=== PATIENT | female | born 1975 | race Caucasian/White ===

== ENCOUNTER → 2017-03-05 | Outpatient (CLI) | payer OTHER ==
--- NOTE | 2017-03-06 16:24 | PULMONARY FUNCTION TEST ---
CLINICAL DATA: A 41-year-old female with a height of 68 inches and a weight of 290 pounds referred by Etta Mills PA-C for pulmonary function testing. Spirometry pre- and post-bronchodilator, lung volumes, and DLCO were ordered and performed. FINDINGS: Pre-bronchodilator spirometry is within normal limits. FVC was 101% of predicted. FEV1 was 98% of predicted. [id number] was 90% of predicted. There was minimal change after inhaled bronchodilator. FEV1 improved 4% to 102% of predicted. [id number] improved 12% to 101% of predicted. Lung volumes show evidence of reduction in expiratory reserve volume and residual volume secondary to obesity. DLCO is minimally reduced at 71% of predicted. IMPRESSIONS: 1. Normal baseline spirometry with minimal improvement after inhaled bronchodilator primarily in [id number]. 2. Reduction in lung volumes secondary to obesity. 3. Very slight reduction in DLCO with normal DLCO/VA. MTDD
== END | disposition home or self-care (01) ==
LOC: C.RC 13:20
PROVIDERS: ATTEND Physician Assistant
DX: G47.30 Sleep apnea, unspecified (principal)

== ENCOUNTER → 2017-03-20 | Outpatient (CLI) | payer OTHER ==
--- NOTE | 2017-03-21 04:58 | PAP/PSG TECHNICIAN REPORT ---
[facility] Dry Cell Assembly Machine Tender Polysomnogram Report Study name: None Report date: 03/21/2017 Study date: 03/20/2017 Referring Physician: ROSA MARIA SLOAN PA-C Name: PAOLA CATES I Interpreting Physician: Hal Baez D.O. Date of : 1975 Dry Cell Assembly Machine Tender: Bree Meier RPSCARLOS. Sex: Female Age: 41 Study Type: PSG Weight: 299 lbs Height: 41 years, Height 5' 9" BMI: 44.15 Medications: PRILOSEC 20 MG, ZANTAC 300 MG, ATENOLOL 25 MG, XANAX 0.5 MG Patient History 41 yr-old female here for a baseline study. She has a history of witnessed apneas, snoring, and daytime sleepiness. Her Lynd scale is 14. The test was started on room air. ETCO2 testing was not utilized during this study. Room 1 Parameters Monitored NPSG: E1-M2, E2-M1, Fp1-M2, Fp2-M1, F3-M2, F4-M2, F4-M1, C3-M2, C4-M2, C4-M1, O1-M2, O2-M2, O2-M1, T3-M2, T4-M1, P3-M2, P4-M1, CHIN1, CHIN2, HR, EKG, Legs, PFLOW, SNOR, FLOW, CFLOW, Tidal Volume, THOR, ABDO, SpO2, PLTH, CPRESS, ETCO2 Wave, ETCO2, pH Sleep Architecture Sleep Stages Time at Lights Off 10:22:08 PM STAGES Time (min.) TST (%) Time at Lights On 4:28:08 AM Wake 159.0 -- Total Recording Time (TRT) 366.00 min. N1 50.5 24 Total Sleep Period (TSP) 313.5 min. N2 128.5 62 Total Sleep Time (TST) 207.0min. N3 22.5 11 Awake Time 159.0 min. REM 5.5 3 Wake after Sleep Onset 143.5 min. Sleep Efficiency (SE) 57 % Sleep Onset Latency (MATEO) 15.5 min. Number of Stage 1 Shifts None Awakenings 14 Stage Changes 52 Number of REM periods 2 REM 5.5 3 REM Latency 160.5 min. NREM 201.5 97 Body Position Analysis Supine Right Left Side Prone Vertical Total Sleep Time (min.) 30.6 0.0 152.7 152.74 53.8 0.0 Total Sleep Time (%) 1% 0% 74% 74 25% N/A% Total Sleep Time REM (min.) 0.0 0.0 3.5 None 2.0 0.0 Total Sleep Time NREM (min.) 1.5 0.0 149.2 None 50.8 0.0 Intermittent Wake (min.) 29.1 0.0 128.9 None 1.0 0.0 Total Sleep Period (%) 9% None None None None None Arousals Myoclonus (PLM) * Events Count Index Events Count Index Spontaneous 12 3 Events Awake (PLMW) 81 30.6 Respiratory 2 0.6 Events Asleep w/ Arousal (PLMA) 8 2.3 PLM 8 2 Events Asleep w/o Arousal (PLMS) 51 14.8 Snoring 1 0 Total Asleep 59 17.1 Total 23 7 Total 140 23 Respiratory Analysis * CA OA MA CH H RERA Total Count 0 0 0 0 1 2 1 Index 0.0 0.0 0.0 0 0.3 1 0.9 Mean Duration 0.0 0.0 0.0 0.00 15.9 17.2 16.8 Longest Duration 0.0 0.0 0.0 0.00 0.0 19.9 19.9 Respiratory Event Summary Total Supine ~Supine Right Left Prone REM NREM Apneas Count 0 0 0 N/A 0 0 0 0 Index 0.0 0 0 N/A 0.0 0 0 0 Hypopneas (4% Desat) Count 1 0 1 N/A 1 0 1 0 Index 0.3 0.0 0 N/A 0.4 0.0 10.9 0.0 Apneas & All Hypopneas Count 1 0 1 N/A 1 0 1 0 Index 0.3 0 0 N/A 0 0 10.9 0.0 Respiratory Events (Insurance Agency Owner+All Hyp+RERA) Count 1 0 3 N/A 2 1 1 0 Index 0.9 0 1 N/A 0.8 1.1 21.8 0.3 Respiratory Related Arousal Count 2 0 2 N/A 1 1 1 1 Index 0.6 0 1 N/A 0 1 11 0 Snoring Analysis Supine Right Left Prone REM NREM Total Snore duration 6.2 min Snores count 0 N/A 431 4 18 417 435 Snore mean duration 0.8 Sec Snores index 0 N/A 169 5 196.4 124.2 126.1 TST with snoring (%) 3.0% Desaturation Event Summary: Minimum %SpO2 Event Count Mean/Min/Max Duration(sec.) Desaturation Index % Time In Bed > 90 8 32.7 / 7.3 / 48.3 1.3 99.6 86 - 90 0 N/A 0.0 0.4 81 - 85 0 N/A 0.0 0.0 76 - 80 0 N/A 0.0 0.0 71 - 75 0 N/A 0.0 0.0 66 - 70 0 N/A 0.0 0.0 61 - 65 0 N/A 0.0 0.0 56 - 60 0 N/A 0.0 0.0 51 - 55 0 N/A 0.0 0.0 < 50 0 N/A 0.0 0.0 Total REM NREM Awake <50% 0.0 min. 0.0 min. 0.0 min. 0.0 min. 51 - 60% 0.0 min. 0.0 min. 0.0 min. 0.0 min. 61 - 70% 0.0 min. 0.0 min. 0.0 min. 0.0 min. 71 - 80% 0.0 min. 0.0 min. 0.0 min. 0.0 min. 81 - 90% 1.3 min. 0.0 min. 1.2 min. 0.1 min. 91 - 100% 358.8 min. 5.5 min. 200.2 min. 153.1 min. Average 94 93 93 94 Minimum SpO2 88 91 90 88 Desaturation Event Index 1.3 10.9 1.2 1.1 # Desat. Events below 89% 1 N/A 1 0 Time(%) with Saturation below 89% 0.0 0.0 0.0 0.0 Time(min.) with Saturation below 89% 0.1 0.0 0.0 0.1 Time (mins) REM (mins) NREM (mins) % of TST SpO2 Below 90% 1 N/A N1 0.0 SpO2 Below 88% 0 0 0 0 Heart Rate Analysis Min (bpm) Max (bpm) Average (bpm) Awake 51 127 66 NREM 51 101 64 REM 58 89 66 Overall 51 101 64 Supplemental O2 Values Minimum O2 level: None Value Start Time End Time Dry Cell Assembly Machine Tender Comments Ms. Cates slept in the left, supine and prone positions. No cardiac arrhythmias were noted. PLMs were noted. No bruxism noted. Snoring was noted and scored as a 2 on a scale of 1 through 5. (0=no snoring, 5=snoring loud enough to be heard through a closed door or down the [address] way) She awoke to use the restroom one time during the night. She called me in the room around 4:30 and stated that she could not sleep any longer and requested to end the study. Ms. Cates stated that she slept poorly. The final report will be interpreted and signed by a sleep physician. The completed physician report will then be placed in the patient medical record. Therapy (cm H2O) 0 TIB (min.) 366.0 TST (min.) 207.0 Sleep Onset (min.) 15.5 REM Onset From Sleep (min.) 160.5 Sleep Efficiency % 57 Wakefulness (%) 43 Wakefulness (min.) 159.0 NREM 1 (%) 24 NREM 1 (min.) 50.5 NREM 2 (%) 62 NREM 2 (min.) 128.5 NREM 3 (%) 11 NREM 3 (min.) 22.5 REM (%) 3 REM (min.) 5.5 # Arousals 23 Arousal Index 7 # Snore 435 Snore Index 126.1 AHI 0.3 AHI Supine 0 AHI Non-Supine 0 NREM AHI 0.0 REM AHI 10.9 RDI 0.9 # Obstructive Apnea 0 # Central Apnea 0 # Mixed Apnea 0 # Hypopneas 1 RERAs 2 Total Respiratory Events 4 Time Below SpO2 89% (min.) 0.0 Mean NREM SpO2 (%) 93 Mean REM SpO2 (%) 93 Mean Sleep SpO2 (%) 93 Min NREM SpO2 (%) 90 Min REM SpO2 (%) 91 Position Supine (min.) 30.6 Position Non-supine (min.) 205.5 LM Index Sleep 17.1 LM Index NREM 17.0 LM Index REM 21.8 Mean Heart Rate (bpm) 64 Min Heart Rate (bpm) 51
--- NOTE | 2017-03-26 09:10 | POLYSOMNOGRAPH REPORT ---
PRIMARY CARE PROVIDER: Dr. Vincenzo Lopez. REFERRING PHYSICIAN: Etta Mills PA-C. CLINICAL DATA: The patient is a 41-year-old female with a BMI of 44.15. She is referred by Etta Mills PA-C. The patient has a history of snoring, observed apneas, morning headaches, and excessive daytime somnolence. Her [place] Sleepiness Score was 14 out of a possible 24. This was a diagnostic in-lab sleep study. SLEEP ARCHITECTURE: The total sleep period was 313.5 minutes. The total sleep time was 207 minutes. The sleep efficiency was moderately decreased to 57%. The sleep onset latency was normal at 15.5 minutes. The wake after sleep onset was elevated at 143.5 minutes. The REM latency was prolonged to 160.5 minutes. Sleep consisted of stage N1 24%, stage N2 62%, stage N3 11%, and stage REM 3%. AROUSAL DATA: The patient had a total of 23 arousals including 12 spontaneous arousals, 2 respiratory arousals, 8 PLM arousals, and 1 snoring arousal. PLM DATA: The patient had a total of 59 periodic limb movements of sleep for an index of 17.1. There were 8 arousals associated with the limb movements for a PLM arousal index of only 2.3. EKG: The cardiac rhythm was normal sinus. The cardiac rates ranged from 51 to 101 beats per minute. RESPIRATORY DATA: The patient had a total of only 1 respiratory event, a hypopnea. Hypopneas were scored by the 4% rule. The apnea hypopnea index was only 0.3 which would be normal. This would suggest no significant sleep apnea. OXIMETRY DATA: The average saturation for the night was 94%. The minimum saturation was 88%. She had 0 time with saturations less than 88%. 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 No cardiac arrhythmias were noted. PLMs were noted. No bruxism noted. Snoring was noted and scored as a 2 on a scale of 1 through 5. The patient requested to terminate the study at 4:30 a.m. because she could not sleep any longer. IMPRESSIONS: 1. Primary snoring. 2. Periodic limb movement disorder. 3. No significant sleep apnea. COMMENTS: The patient had a decreased sleep efficiency. She fell asleep fairly readily, but had an increase in wake time during the night. She had very little sleep after 3:00 a.m. She did have a mild to moderate degree of periodic limb movements as noted. There were few arousals associated with these however, and thus it seems unlikely this issue is causing insomnia. She had no significant sleep apnea. RECOMMENDATIONS: 1. The patient does have an elevation of body mass index at 44.15. A weight reduction program is advised. 2. The patient should be advised of the appropriate principles of sleep hygiene including having a fairly regular sleep-wake schedule and allowing sufficient time for sleep such as approximately 8 hours nightly. 3. Other medical causes for excessive daytime somnolence may need to be excluded. This is deferred to her referring physician.
== END | disposition home or self-care (01) ==
LOC: C.NEUR 20:00
PROVIDERS: ATTEND Physician Assistant
DX: G47.30 Sleep apnea, unspecified (principal); G47.61 Periodic limb movement disorder

== ENCOUNTER → 2017-03-25 | Outpatient (CLI) | payer OTHER ==
[2017-03-25 17:52] LABS: HEMATOCRIT 39.9 % (37-47); MEAN CELL VOLUME 91.9 fL (80-100); MEAN CORPUSCULAR HGB CONC 31.6 g/dl (32-36); MEAN PLATELET VOLUME 10.9 fL (7.4-10.4); PLATELET COUNT 273 K/uL (130-400); RED BLOOD COUNT 4.34 M/uL (4.2-5.4); WHITE BLOOD COUNT 10.97 K/uL (4.8-10.8)
[2017-03-25 18:27] LABS: ALB/GLOB RATIO 0.8 (0.9-2); ALKALINE PHOSPHATASE 90 U/L (45-117); AST/SGOT 18 U/L (15-37); BLOOD UREA NITROGEN 12 mg/dl (7-18); CALCIUM 8.5 mg/dl (8.5-10.1); CARBON DIOXIDE 28 mmol/L (21-32); CHLORIDE 105 mmol/L (98-107); CREATININE 0.87 mg/dl (0.60-1.20); GLUCOSE 90 mg/dl (70-99); HDL CHOLESTEROL 56 mg/dl; POTASSIUM 3.5 mmol/L (3.5-5.1); SODIUM 141 mmol/L (136-145)
[2017-03-25 18:38] LABS: ALT/SGPT 28 U/L (12-78); CHOLESTEROL 137 mg/dl (0-200); CHOLESTEROL/HDL RATIO 2.4; LDL CHOLESTEROL CALCULATED 58 mg/dl; TRIGLYCERIDES 117 mg/dl (0-150); VERY LOW DENSITY LIPOPROT CALC 23 mg/dl
[2017-03-26 06:39] LABS: ESTIMATED AVERAGE GLUCOSE 108 mg/dl; HA1C FLAG Normal (Normal)
[2017-03-29 16:39] LABS: MICROSOMAL AB <1 IU/ML (<9); TSI <89 % baseline (<140)
--- NOTE | 2017-04-05 06:26 | CODING QUERY MEDICAL NECESSITY ---
SUPPORTING DIAGNOSIS NEEDED Gene MARIN, A supporting diagnosis is required for the test/procedure performed on this patient in order for us to be reimbursed by the patient's insurance. Please provide a supporting diagnosis for the following test/procedure listed below next to the test name along with your signature. *If there is no additional diagnosis for this patient that would support the following test/procedure please document that below next to the test/procedure. Test(s)/Procedure(s) that require a supporting diagnosis: * [id number] GLYCATED HEMOGLOBIN DIAGNOSIS: * [id number] VITAMIN D ASSAY DIAGNOSIS: DATE OF SERVICE: 03/25/17 Provider Signature: Date: Thank you Tyree Hernandez [facility] Information Management Once completed, please kindly fax back to [phone] For questions please call [phone]
== END | disposition home or self-care (01) ==
LOC: C.LABPVFM 14:21
PROVIDERS: ATTEND Physician Assistant
DX: R06.00 Dyspnea, unspecified (principal); E28.2 Polycystic ovarian syndrome; E66.8 Other obesity; I10 Essential (primary) hypertension; G47.30 Sleep apnea, unspecified; E55.9 Vitamin D deficiency, unspecified